=== PATIENT | male | born 1995 | race Caucasian/White ===

== ENCOUNTER 2019-05-25 06:06 | Day surgery (SDC) | payer MEDICAID, SELFPAY ==
[2019-05-25] VITALS (10 sets, daily range): BP systolic 91–148; BP diastolic 45–87; PULSE 56–93; RESP 14–18; TEMP 36–36.6; O2SAT 16–99
[2019-05-25] MEDS: Lactated Ringers 1,000 ML 80 ML IV ×2 (06:46→08:56)
--- NOTE | 2019-05-25 06:57 | W.PM.OP ---
Date of service: 05/25/19 Time of Service: 09:14 Operative Note DATE OF PROCEDURE: 05/25/19 PRE-OP DIAGNOSIS: Biliary diskinesia POST-OP DIAGNOSIS: same PROCEDURE: Laparoscopic Cholecystectomy SURGEON: Felicity Wisdom MATRIX PLATER: Elizabeth Cotter ANESTHESIA: GETA (Rose Thomas CRNA) and regional ESTIMATED BLOOD LOSS: 25 PATHOLOGY: other (Gallbladder and content) COMPLICATIONS: None Patient was transported to: PACU Patient's condition: stable Indications: Mr. Frances is a pleasant 23 year old male who has been having a lot of abdominal pain and nausea. He has lost 30 lb in 3 weeks due to the inability to eat well due to pain. His US was normal but his HIDA scan was abnormal. Findings: Anatomy was difficult as he had a large and very anterior Celiac artery. The neck of the gallbladder was folded on itself. Procedure Description: After informed consent was obtained the patient was taken to the PACU and anesthesia performed a erector spine block for postoperative comfort. Once the block was in place the patient was brought to the operating room, placed in a supine position and monitors were applied. SCDs were applied to his lower extremities and he was placed under general anesthesia and intubated without difficulty. His abdomen was then prepped and draped in a sterile fashion using ChloraPrep. At this point a timeout was done and the patient's name, date of , procedure type, allergies to medications, metal in his body, antibiotic and DVT prophylaxis were reviewed. Fire risk was assessed. At this point Experel was injected just above the umbilicus into the dermis and subcutaneous tissue. A 5 mm incision was made with an 11 blade. The skin next to the incision was grasped with penetrating towel clamps and while pulling up on the skin a 5 mm port was placed under direct visualization. Due to the patient's size I did not feel comfortable pushing quite so hard to try to get through the fascia. The incision was made a little bit larger. Using S retractors the subcutaneous tissue was identified and bluntly dissected with a hemostat. The fascia was identified and grasped with a cocker and cut with scissors. The 5 mm port was then easily passed into the abdomen under direct visualization. The abdomen was insuflated and then 3 more ports were placed. A 12 mm port was placed in the subxiphoid area and two 5 mm ports were placed in the right upper quadrant. The liver was inspected and it looks like there is some fatty infiltration. The patient's bed was then turned to the left and his head was brought up. The gallbladder was grasped at the body and pushed towards the right shoulder, this allowed me to visualize the neck of the gallbladder. Omentum was attached to the gallbladder and it was dissected away with cuatery. The neck was grasped and pulled towards the right flank and down allowing me to visualize the lymph node. Using a [place] dissector with cautery the lymph node was gently dissected away from the tissues and the fatty tissue was also dissected away. The cystic artery was identified anterior to the gallbladder. At first I thought it was the duct, but I then followed the gallbladder farther down. The peritoneum was dissected away from the gallbladder at the neck, releasing it from the liver. This allowed me some more mobility. At that point I was able to visulaize the duct. The duct was dissected 360 degrees using the [place] dissector in order for me to visualize its entrance into the gallbladder. Liver was noted behind it. There were no other structures right behind. Critical view was achieved. 3 clips were placed one proximal and 2 distal and the cystic duct was cut. The cystic artery was again identified. It was visualized going into the gallbladder. Once dissected 3 more clips were placed one proximal and 2 distal and the artery was cut. Using the hook dissector the gallbladder was then dissected away from the liver bed and placed into an Endo Catch bag and pulled through the 12 mm port site. The 12 mm port was placed back into the abdomen under direct visualization. The liver bed was inspected no bleeding was noted. The abdomen was then irrigated with a liter and a half of normal saline until the effluent was clear. Once all the fluid was suctioned out, 20 cc of 1% Lidocaine was injected above the liver to help with postoperative right shoulder pain. The 12 mm and the 2 right upper quadrant ports were removed under direct visualization and no bleeding was noted from the fascia. The abdomen was deflated completely and lastly the umbilical port was removed. The rest of the exparel was injected into the fascia of the incisions. The skin was cleaned and the incisions were closed with 4-0 Vicryl. The skin was dried and skin affix was applied over the closed incisions. Needle and sponge counts were correct at the end of the case. At this point the patient was woken up, extubated and taken back to recovery in stable condition. There were no immediate complications.
--- NOTE | 2019-05-25 07:04 | W.PM.DSUDISC ---
Discharge Plan Disposition Patient Disposition: HOME Condition: Good Discharge Details Reason For Visit: Biliary Dyskinesia Attending Provider: Felicity Wisdom Primary Care Provider: Jj Santos Home Meds and New Rx's Prescriptions: New acetaminophen [Tylenol] 325 mg Tablet 650 mg PO Q6H PRN PRNQty: 30 RF: 0 Continued dicyclomine 10 mg capsule 10 mg PO QID RF: 0 ibuprofen 800 mg tablet 800 mg PO TID RF: 0 ondansetron HCl [Zofran] 4 mg tablet 4 mg PO TID PRNRF: 0 sertraline 100 mg tablet 100 mg PO DAILY RF: 0 tramadol 50 mg tablet 50 mg PO Q6H RF: 0 Discharge Instructions Additional Instructions: Activity at Home after surgery: 1. Make sure you walk outside at least 4 times per day 2. You should be able to climb a flight of stairs 3. No driving while in pain or taking pain medications 4. No strenuous activity or heavy lifting for 2 weeks (laparoscopic surgery) Diet, Nutrition, & wound healin. Avoid alcohol until after you are recovered from your surgery 2. Make sure to eat plenty of lean protein (meat, fish, eggs, cottage cheese, beans) 3. Eat a variety of fruits and vegetables. Eat plenty of high fiber foods to avoid constipation. 4. Drink plenty of liquids to stay hydrated and avoid constipation Pain Medications: 1. Alternate Tylenol 650 mg and Ibuprofen 600 mg every 3 hours 2. If a narcotic has been prescribed take as directed only for breakthrough pain For Constipation: 1. Take Milk of Magnesia or MiraLax as needed for constipation Other: 1. You may shower daily. Do not scrub the incisions 2. Do not soak the incisions for 1 week 3. You may alternate ice and heat as needed for pain and swelling Wound Care: 1. Keep the incisions clean and dry Please call our office if you develop: 1. Fevers >101.5 2. Nausea or Vomiting 3. Worsening pain 4. Redness and thick discharge from the wounds If after hours please call the Hospital at and ask to speak to the on-call surgeon Referrals: Felicity Wisdom MD [ [facility] STAFF PHYSICIAN] - 06/10/19 1:00 pm Activity:: No lifting, pulling or pushing more then 20 lb Diet:: low fat Discharge Orders Discharge Orders: Discharge Order (Routine); Ordered 05/25/19 Ordered By: Felicity Wisdom DS: Diagnosis Discharge Diagnosis (1) S/P laparoscopic cholecystectomy: Status: Acute
[2019-05-25] MEDS: Scopolamine 1 MG/3 DAYS PATCH TD (07:28)
[2019-05-25] MEDS: Bupivacaine LIPOSOME/PF 133 MG/10 ML VIAL IJ ×2 (07:37→09:04)
[2019-05-25] MEDS: Bupivacaine 0.25% Pres-Free 30 ML VIAL (07:37)
[2019-05-25] MEDS: ceFAZolin 2,000 MG in Normal Saline 100 ML 200 MG IVPB (07:50)
--- NOTE | 2019-05-25 08:53 | GB_PTH ---
PATIENT: ELIO RAI LOC: [facility] U#:[id number] AGE/SX: 23/M ROOM: RE05/25/[address]: Felicity Wisdom MD : [id number] BED: DIS: 05/25/2019 SPEC #: [id number] RECD: 05/25/19 12:52 STATUS: BRITTANY REQ #: [id number] EFRAÍN: 05/25/19 08:[address]: Felicity Wisdom DEPT: Surgical Specimen RECD BY: Noemí Kim ENTERED: 05/25/19 12:52 SP TYPE: GB OTHR DR: Jj Santos Tissues: 1 - GALLBLADDER Procedures: GROSS AND MICRO LEVEL 3 Comments: [id number]
[2019-05-25] MEDS: Lidocaine 1% Multi-Dose 50 ML VIAL (09:04)
[2019-05-25] MEDS: Ketorolac 30 MG/ML VIAL IVP (10:23)
[2019-05-25] MEDS: fentaNYL 100 MCG/2 ML VIAL IVP ×2 (10:26→10:52)
[2019-05-25] MEDS: ACETAMINOPHEN 1,000 MG/100 ML BTL 400 MG IVPB (10:28)
== END 2019-05-25 12:12 | disposition home or self-care (01) ==
PROVIDERS: PCP Family Medicine; Visit Provider Surgery
PROC: 0FT44ZZ Resection of Gallbladder, Percutaneous Endoscopic Approach (ICD-10-PCS; CPT 47562; principal; 2019-05-25 07:30)
DX: K82.8 Other specified diseases of gallbladder (principal); K81.1 Chronic cholecystitis
CPT/HCPCS: 47562; 76942; 88304; J0131; J1100; J1885; J2250; J2405; J3010